=== PATIENT | female | born 1950 | race Caucasian/White ===

== ENCOUNTER → 2016-10-20 | Outpatient (CLI) | payer MEDICARE, MEDICAID ==
[~2016-10-20] VITALS: Ht 149.9 cm; Wt 103.2 kg
[~2016-10-20] MED LIST: ALPR.25 PO; AMLO10TA2 PO; ASPI1TAB69 PO; COLA100C3 PO; ENAL20TA PO; ERGO1CAP10 PO; FURO1TAB62 PO; GABA400C5 PO; HYDR-3534 PO; INSULIN HUMAN REGULAR 1,000 UNITS/10 ML VIAL SQ PRN; LACTATED RINGER'S 1000 ML IV SCH; METO25TA3 PO; METOPROLOL TARTRATE 25 MG TAB PO PRN; OMEP20TA PO; PROPOFOL 200 MG/20 ML AMP IV ONE; SODIUM CHLORID 0.9% 500 ML IV SCH; VENTAER INH; ZYRT10CA PO
[2016-10-20 08:54] VITALS: BP 129/80; PULSE 82; RESP 20; TEMP 97.3; O2SAT 98
--- NOTE | 2016-10-20 10:49 | PD.PROCEDR ---
GI Procedure PROCEDURE PERFORMED EGD followed by a colonoscopy with snare polypectomy and polyp resection with biopsy INDICATION FOR PROCEDURE History of reflux and history of colon polyps PROCEDURE: The procedure, risks and benefits were discussed with Ms. Carter and informed consent was obtained. Anesthesia sedated her with Diprivan. She was placed in the left lateral decubitus position. EGD: The Pentax videoscope was introduced through the oropharynx and advanced to the second portion of the duodenum under direct visualization. Retroflexion was performed in the stomach. FINDINGS: The esophagus this appeared to be unremarkable and within normal limits the Z line was regular The stomach there was a moderate sized hiatal hernia otherwise gastric mucosa was unremarkable and within normal limits The duodenum this appeared to be unremarkable and within normal limits Colonoscopy: The Pentax videoscope was introduced through the rectum and advanced to cecum where the ileocecal valve and appendiceal orifice were identified. Retroflexion was performed in the rectum. Colonic prep was fair FINDINGS: Colonic withdrawal time greater than 6 minutes as the scope was slowly withdrawn colonic mucosa was carefully inspected I was able to advance the scope into the terminal ileum which appeared to be unremarkable the patient was noted to have several polyps there was one small one in the ascending colon this was excised using a biopsy forceps there were 2 small polyps in the proximal transverse colon that were excised using biopsy forceps there was a fourth polyp in the descending colon and a fifth one in the sigmoid and both were sessile and both were excised using cold snare technique all polyps were retrieved for further evaluation patient was also noted to have diverticulosis this was mild mostly in the sigmoid and to a lesser extent in the descending colon retroflexion in the rectum was unremarkable cells rectal examination ESTIMATED BLOOD LOSS: None SPECIMENS REMOVED: Colonic samples COMPLICATIONS: None IMPRESSION: Hiatal hernia Colon polyps Diverticulosis PLAN: Await biopsies High fiber diet Reflux precautions with diet and exercise and weight loss Chew food well Colonoscopy in 5 years Follow-up in clinic as needed Mino Echols MD Oct 20, 2016 10:48
[2016-10-20 11:01] VITALS: BP 117/65; PULSE 82; RESP 18; O2SAT 99
--- NOTE | 2016-10-20 13:35 | EKG ---
Date Performed: 10/20/2016 Time Performed: 08:46:19 PTAGE: 66 years EKG: Sinus rhythm NORMAL ECG NO PREVIOUS TRACING DOCTOR: Tomeka Golden Interpretating Date/Time 10/20/2016 13:30:50
== END ==
LOC: HEND 08:16
PROVIDERS: ATTEND Internal Medicine Gastroenterology
DX: Z12.11 Encounter for screening for malignant neoplasm of colon (principal); Z86.010 Personal history of colon polyps; D12.2 Benign neoplasm of ascending colon; D12.3 Benign neoplasm of transverse colon; D12.4 Benign neoplasm of descending colon; K57.30 Diverticulosis of large intestine without perforation or abscess without bleeding; K44.9 Diaphragmatic hernia without obstruction or gangrene; K21.9 Gastro-esophageal reflux disease without esophagitis; I10 Essential (primary) hypertension; E66.01 Morbid (severe) obesity due to excess calories; Z68.42 Body mass index [BMI] 45.0-49.9, adult
CPT/HCPCS: 88305; 93005